=== PATIENT | female | born 1930 | race Caucasian/White ===

== ENCOUNTER 2017-12-17 14:38 | Emergency (ER) | payer MEDICARE ==
[2017-12-17 15:53] LABS: AUTOMATED NEUTROPHIL # 7.1 TH/MM3 (1.8-7.7); BASOPHIL # 0.1 TH/MM3 (0-0.2); BASOPHIL % 0.5 % (0.0-2.0); EOSINOPHIL # 0.1 TH/MM3 (0-0.4); EOSINOPHIL % 0.7 % (0.0-4.0); HEMATOCRIT 35.3 % (35.0-46.0); HEMO FLAGS DIFF FINAL; LYMPH % 18.9 % (9.0-44.0); MEAN CELL VOLUME 93.7 FL (80.0-100.0); MEAN CORPUSCULAR HGB CONC 34.1 % (32.0-36.0); MEAN PLATELET VOLUME 7.9 FL (7.0-11.0); MONO % 12.8 % (0.0-8.0); MONOCYTE # 1.3 TH/MM3 (0-0.9); NEUT % 67.1 % (16.0-70.0); PLATELET COUNT 262 TH/MM3 (150-450); RED BLOOD COUNT 3.76 MIL/MM3 (4.00-5.30); RED CELL DISTRIBUTION WIDTH 12.5 % (11.6-17.2); WHITE BLOOD COUNT 10.6 TH/MM3 (4.0-11.0)
[2017-12-17 16:01] LABS: APTT (PATIENT) 26.2 SEC (24.3-30.1); PROTHROMBIN TIME - PATIENT 10.6 SEC (9.8-11.6)
[2017-12-17 16:06] LABS: ALBUMIN 3.1 GM/DL (3.4-5.0); ALT (GPT) 25 U/L (10-53); ANION GAP 7 MEQ/L (5-15); AST (GOT) 26 U/L (15-37); BICARBONATE 24.7 MEQ/L (21.0-32.0); BLOOD UREA NITROGEN 16 MG/DL (7-18); CALCIUM 8.8 MG/DL (8.5-10.1); CHLORIDE 104 MEQ/L (98-107); CREATININE 0.72 MG/DL (0.50-1.00); GLOMERULAR FILTRATION RATE 77 ML/MIN (>89); GLUCOSE,RANDOM 83 MG/DL (74-106); MAGNESIUM 2.1 MG/DL (1.5-2.5); POTASSIUM 3.7 MEQ/L (3.5-5.1); SODIUM (NA) 136 MEQ/L (136-145)
[2017-12-17 16:10] LABS: ALKALINE PHOSPHATASE 121 U/L (45-117); CREATINE KINASE 45 U/L (26-192); TOTAL BILIRUBIN ADULT 0.5 MG/DL (0.2-1.0); TOTAL PROTEIN 6.3 GM/DL (6.4-8.2); TROPONIN I LESS THAN 0.02 NG/ML (0.02-0.05)
[2017-12-17 16:45] LABS: BILIRUBIN, URINE NEG (NEG); BLOOD, URINE NEG (NEG); COMMENT (UR) CULT NOT INDICATED; CULTURE IF INDICATED CULT NOT INDICATED; GLUCOSE,URINE NEG (NEG); KETONE, URINE 40 mg/dL (NEG); MUCUS URINE MANY /lpf (OCC); NITRITE,URINE NEG (NEG); PH, URINE 6.5 (5.0-8.5); SQUAMOUS EPITHELIAL CELL URINE <1 /hpf (0-5); URINE COLOR YELLOW (YELLW/STRAW); URINE LEUKOCYTE ESTERASE LARGE (NEG)
[2017-12-17] MEDS: ONDANSETRON HCL 4 MG/2 ML VIAL IV PUSH (17:32)
[2017-12-17] MEDS: SODIUM CHLORID 0.9% 500 ML INJ 500 ML IV (17:32)
[2017-12-17 18:57] LABS: TROPONIN I LESS THAN 0.02 NG/ML (0.02-0.05)
== END 2017-12-17 19:42 | disposition home or self-care (01) ==
LOC: NEPC 14:38
DX: B34.9 Viral infection, unspecified (principal); M79.89 Other specified soft tissue disorders; I11.0 Hypertensive heart disease with heart failure; I50.9 Heart failure, unspecified; E78.00 Pure hypercholesterolemia, unspecified; J44.9 Chronic obstructive pulmonary disease, unspecified; K21.9 Gastro-esophageal reflux disease without esophagitis; M19.049 Primary osteoarthritis, unspecified hand; R94.31 Abnormal electrocardiogram [ECG] [EKG]
CPT/HCPCS: 71045; 80053; 81001; 82550; 83735; 84484; 85025; 85610; 85730; 87804; 87804-59; 93005; 93970; 96361; 96374; 99285-25

== ENCOUNTER 2018-02-28 16:26 | Emergency (ER) | payer MEDICARE ==
[~2018-02-28] VITALS: Ht 160 cm; Wt 50.0 kg
[~2018-02-28 16:26] MED LIST: MULTTAB67 PO; OMEP40CA2 PO; SIMV40TA PO; ZANT150T2 PO; ZOFR4TAB PO
[2018-02-28 16:31] VITALS: BP 131/59; PULSE 69; RESP 16; TEMP 98.5; O2SAT 97
--- NOTE | 2018-02-28 16:46 | PD ---
HPI Chief Complaint: Injury Time Seen by Provider: 16:36 Travel History International Travel<30 days: No Contact w/Intl Traveler<30days: No Traveled to known affect area: No History of Present Illness HPI 87-year-old female presents emergency department for evaluation of her right fourth toe after accidentally kicking her suitcase this morning. Patient states that she was in a hurry and accidentally ran into her suitcase, running her fourth toe into the wheel. Patient denies numbness or tingling to the foot. She denies any ankle pain. Patient did not fall. Says her pain is mild to moderate, worse with stepping and decreases with rest. Says she took Aleve with some relief in her pain. Says that she takes medication for gastric reflux denies any other medical issues medication use. PFSH Past Medical History Arthritis: Yes (HANDS AND FINGERS) Asthma: No Heart Rhythm Problems: No Cancer: No Cardiac Catheterization: No Cardiovascular Problems: No High Cholesterol: Yes Chest Pain: No Congestive Heart Failure: Yes COPD: Yes Cerebrovascular Accident: No Diabetes: No Endocrine: No GERD: Yes Genitourinary: No Headaches: Yes Hiatal Hernia: No Hypertension: Yes Immune Disorder: No Musculoskeletal: Yes (R shoulder ROTATOR CUFF) Psychiatric: No Reproductive: No Respiratory: Yes Migraines: Yes Seizures: No Sleep Apnea: No Thyroid Disease: No Ulcer: No ?: Not Past Surgical History AICD: No Eye Surgery: Yes (Bilat) Joint Replacement: No Pacemaker: No Other Surgery: Yes Social History Alcohol Use: No Tobacco Use: No Substance Use: No Allergies-Medications (Allergen,Severity, Reaction): Coded Allergies: No Known Allergies (Unverified Adverse Reaction, Unknown, 02/28/18) Reported Meds & Prescriptions Reported Meds & Active Scripts Active Reported Aleve Arthritis (Naproxen Sodium) 220 Mg Tab 220 Mg PO BID Sertraline (Sertraline HCl) 25 Mg Tab 25 Mg PO DAILY Lisinopril 5 Mg Tab 5 Mg PO DAILY Prozac (Fluoxetine HCl) 20 Mg Cap 20 Mg PO DAILY Multiple Vitamin 1 Tab 1 Tab PO DAILY Simvastatin 40 Mg Tab 40 Mg PO HS Zantac (Ranitidine HCl) 150 Mg Tab 150 Mg PO DAILY Omeprazole 40 Mg Cap 40 Mg PO DAILY Review of Systems Except as stated in HPI: all other systems reviewed are Neg Physical Exam Narrative GENERAL: Well-nourished, well-developed patient. SKIN: Focused skin assessment warm/dry. HEAD: Normocephalic. EYES: No scleral icterus. No injection or drainage. NECK: Supple, trachea midline. No JVD or lymphadenopathy. CARDIOVASCULAR: Regular rate and rhythm without murmurs, gallops, or rubs. RESPIRATORY: Breath sounds equal bilaterally. No accessory muscle use. MUSCULOSKELETAL: No cyanosis, or edema. Right foot-fourth toe with ecchymosis at the base, some ecchymosis the distal aspect. Slightly laterally displaced. Neurovascularly intact, minimal movement secondary to pain. No tenderness palpation the medial lateral aspect of midfoot or ankle. Full range of motion of ankle. BACK: Nontender without obvious deformity. No CVA tenderness. Data Data Last Documented VS Vital Signs Date Time Temp Pulse Resp B/P (MAP) Pulse Ox O2 Delivery O2 Flow Rate FiO2 02/28/18 16:31 98.5 69 16 131/59 (83) 97 Orders Orders Foot, Complete ([id number]) (02/28/18 ) Support Splint (02/28/18 17:23) MDM Medical Decision Making Medical Screen Exam Complete: Yes Emergency Medical Condition: Yes Differential Diagnosis Right toe fracture, sprain, avulsion, contusion Narrative Course 87-year-old female presents emergency department for evaluation of her right fourth toe after accidentally kicking her suitcase this morning. Patient states that she was in a hurry and accidentally ran into her suitcase, running her fourth toe into the wheel. Patient denies numbness or tingling to the foot. She denies any ankle pain. Patient did not fall. Says her pain is mild to moderate, worse with stepping and decreases with rest. Says she took Aleve with some relief in her pain. Says that she takes medication for gastric reflux denies any other medical issues medication use. Vital signs stable. Physical exam findings consistent with a right fourth toe fracture versus contusion. Last Impressions Foot X-Ray 02/28/18 0000 Signed Impressions: Service Date/Time: Wednesday, February 28, 2018 17:01 - CONCLUSION: Mildly angulated oblique fracture of the proximal phalanx of the 4th digit. Kishor Faith MD Patient is placed in a postop shoe and nicolas tape third to fourth toe. I offered crutches however, patient did not want these. Advised she follow-up with a hris analyst. Tylenol or Motrin per package instructions. Follow up with her PCP for further treatment and eval. Diagnosis Primary Impression: Toe fracture, right Qualified Codes: S92.514A - Nondisplaced fracture of proximal phalanx of right lesser toe(s), initial encounter for closed fracture Referrals: Pump Technician Primary Care Physician Additional Instructions: Use ice or heat for symptom relief. Elevate the joint above the heart to reduce swelling. You may use compression with Michael wrap or similar to reduce swelling. If symptoms persist or worsen, return to the emergency department, although this injury may take several weeks to completely heal and he may still have pain. Follow up with your primary care physician within 2 days. Disposition: 01 DISCHARGE HOME Condition: Stable Sonia Sanchez Feb 28, 2018 16:46
[2018-02-28] MEDS ORDERED: ALEV220T14 PO (16:53)
[2018-02-28] MEDS ORDERED: LISI-519 PO (16:53)
[2018-02-28] MEDS ORDERED: PROZ20CA11 PO (16:53)
[2018-02-28] MEDS ORDERED: SERT25TA83 PO (16:53)
--- NOTE | 2018-02-28 17:33 | RADRPT ---
EXAM DATE/TIME: 02/28/2018 17:01 [facility] COMPARISON: No previous studies available for comparison. INDICATIONS : Right foot, fourth digit pain after kicking suitcase. MEDICAL HISTORY : None. SURGICAL HISTORY : None. ENCOUNTER: Initial ACUITY: 1 day PAIN SCORE: 8/10 LOCATION: Right foot, fourth digit. FINDINGS: There is an oblique fracture through the midshaft of the proximal phalanx of the 4th digit with mild angulation. No intra-articular extension. The osseous structures are osteopenic. No radiopaque for eign bodies. CONCLUSION: Mildly angulated oblique fracture of the proximal phalanx of the 4th digit. Kishor Faith MD on February 28, 2018 at 17:30 Board Certified Radiologist. This report was verified electronically.
== END 2018-02-28 18:03 | disposition home or self-care (01) ==
LOC: PHEFT 16:26
DX: S92.514A Nondisplaced fracture of proximal phalanx of right lesser toe(s), initial encounter for closed fracture (principal); K21.9 Gastro-esophageal reflux disease without esophagitis; M19.049 Primary osteoarthritis, unspecified hand; E78.00 Pure hypercholesterolemia, unspecified; I11.0 Hypertensive heart disease with heart failure; I50.9 Heart failure, unspecified; J44.9 Chronic obstructive pulmonary disease, unspecified; W22.8XXA Striking against or struck by other objects, initial encounter; Z79.899 Other long term (current) drug therapy
CPT/HCPCS: 73630; 99283; L3260

== ENCOUNTER → 2018-03-23 | Outpatient (CLI) | payer MEDICARE ==
[~2018-03-23] MED LIST changes: +ALEV220T14 PO; +LISI-519 PO; +PROZ20CA11 PO; +SERT25TA83 PO; -ZOFR4TAB PO
[2018-03-23 14:07] LABS: AUTOMATED NEUTROPHIL # 3.4 TH/MM3 (1.8-7.7); BASOPHIL # 0.1 TH/MM3 (0-0.2); BASOPHIL % 1.6 % (0.0-2.0); EOSINOPHIL # 0.1 TH/MM3 (0-0.4); EOSINOPHIL % 1.4 % (0.0-4.0); HEMOGLOBIN 12.4 GM/DL (11.6-15.3); LYMPH % 35.4 % (9.0-44.0); LYMPHOCYTE # 2.3 TH/MM3 (1.0-4.8); MEAN CELL VOLUME 93.3 FL (80.0-100.0); MEAN CORPUSCULAR HEMOGLOBIN 31.3 PG (27.0-34.0); MEAN CORPUSCULAR HGB CONC 33.5 % (32.0-36.0); MEAN PLATELET VOLUME 7.2 FL (7.0-11.0); MONO % 8.8 % (0.0-8.0); MONOCYTE # 0.6 TH/MM3 (0-0.9); NEUT % 52.8 % (16.0-70.0); PLATELET COUNT 284 TH/MM3 (150-450); RED BLOOD COUNT 3.96 MIL/MM3 (4.00-5.30); RED CELL DISTRIBUTION WIDTH 13.8 % (11.6-17.2); WHITE BLOOD COUNT 6.5 TH/MM3 (4.0-11.0)
[2018-03-23 14:30] LABS: ALBUMIN 3.9 GM/DL (3.4-5.0); ALT (GPT) 27 U/L (10-53); AST (GOT) 29 U/L (15-37); BICARBONATE 27.7 MEQ/L (21.0-32.0); BLOOD UREA NITROGEN 19 MG/DL (7-18); CALCIUM 8.7 MG/DL (8.5-10.1); CHLORIDE 108 MEQ/L (98-107); CHOLESTEROL 165 MG/DL (120-200); GLOMERULAR FILTRATION RATE 80 ML/MIN (>89); GLUCOSE,FASTING 79 MG/DL (74-99); SODIUM (NA) 143 MEQ/L (136-145)
[2018-03-23 14:39] LABS: ALKALINE PHOSPHATASE 86 U/L (45-117); CHOLESTEROL/ HDL RATIO 2.34 RATIO; HDL CHOLESTEROL 70.4 MG/DL (40.0-60.0); LDL CHOLESTEROL 72 MG/DL (0-99); TOTAL BILIRUBIN ADULT 0.5 MG/DL (0.2-1.0); TOTAL PROTEIN 6.5 GM/DL (6.4-8.2); TRIGLYCERIDES 111 MG/DL (42-150)
== END ==
LOC: CLAB 13:30
PROVIDERS: ATTEND Internal Medicine
DX: I10 Essential (primary) hypertension (principal); E78.5 Hyperlipidemia, unspecified
CPT/HCPCS: 36415; 80053; 80061; 84443; 85025

== ENCOUNTER → 2018-04-30 | Outpatient (CLI) | payer MEDICARE ==
[2018-04-30 18:52] LABS: ALBUMIN 3.9 GM/DL (3.4-5.0); DIRECT BILIRUBIN ADULT 0.1 MG/DL (0.0-0.2)
[2018-04-30 18:54] LABS: INDIRECT BILIRUBIN 0.4 MG/DL (0.0-0.8); TOTAL BILIRUBIN ADULT 0.5 MG/DL (0.2-1.0); TOTAL PROTEIN 6.5 GM/DL (6.4-8.2)
== END ==
LOC: PLAB 13:31
PROVIDERS: ATTEND Specialist
DX: R10.9 Unspecified abdominal pain (principal)
CPT/HCPCS: 36415; 80076; 82150; 83690